=== PATIENT | female | born 1985 | race Caucasian/White ===

== ENCOUNTER 2016-04-28 00:23 | Emergency (ER) | payer SELFPAY ==
--- NOTE | 2016-04-28 06:11 | ER ---
ADMIT: 04/28/2016 RM/LOC: ER [facility] MR#: [id number] [address] AVIVA AZEVEDO [address] [place] [address] Emergency Room Report SEX: F AGE: 30 : 1985 DATE: 04/28/2016 The patient is a 30-year-old female, positive home test on Friday, complains of increasing dysuria, frequency and mild right flank pain. Had one episode of vomiting last week. Exam remarkable for nontoxic, afebrile, comfortable-appearing female with minimal right CVA tenderness. UA; 3+ leukocyte esterase, 54 WBCs, positive hCG. Prescribed Macrobid 100 mg in department and b.i.d. x10 days. Pyridium 200 mg in department and t.i.d. x3 days. Push fluids. Follow up Dr. Sears next week. Reed Gaspar MD/ ciaran JOB #: [id number] CC: Reed Gaspar MD, Attending Physician Placido Anand MD, Family Physician Brian Sears MD
== END 2016-04-28 01:20 | disposition home or self-care (01) ==
LOC: ER 00:23
DX: O23.11 Infections of bladder in pregnancy, first trimester (principal); N30.00 Acute cystitis without hematuria; Z3A.00 Weeks of gestation of pregnancy not specified; Z98.890 Other specified postprocedural states; Z88.8 Allergy status to other drugs, medicaments and biological substances

== ENCOUNTER 2016-06-23 21:17 | Emergency (ER) | payer SELFPAY ==
--- NOTE | 2016-06-24 16:40 | ER ---
ADMIT: 06/23/2016 RM/LOC: ER [facility] MR#: [id number] [address] AVIVA AZEVEDO [address] [place] [address] Emergency Room Report SEX: F AGE: 30 : 1985 DATE: 06/23/2016 ADDENDUM: This patient comes into the ER because she is concerned that she might have genital herpes. She states her sister and her [id number] have genital herpes and are currently having an outbreak. She lives in the same house as they do, and she notices that she has an itchy rash in her pubic area. She is also 14 weeks . On physical exam, she is completely shaved in her pubic area and there is a lot of folliculitis-type appearance throughout her pubic hair, only around the mons, none in the labia consistent with irritation of her hair follicles. DIAGNOSIS: Folliculitis. PLAN: I explained to her what I thought the diagnosis was if she was not having sexual contact with her sister or her [id number], I did not feel like she had genital herpes. We did talk about how genital herpes is passed and why I think this is folliculitis. We will have her follow up with her physician as needed. MARY Monaco / Reed Gaspar MD / ciaran JOB #: [id number] CC: Reed Gaspar MD, Attending Physician Mai Law MD, Family Physician
== END 2016-06-23 22:35 | disposition home or self-care (01) ==
LOC: ER 21:17
DX: O99.89 Other specified diseases and conditions complicating pregnancy, childbirth and the puerperium (principal); L73.9 Follicular disorder, unspecified; Z3A.15 15 weeks gestation of pregnancy; Z98.890 Other specified postprocedural states; Z79.899 Other long term (current) drug therapy

== ENCOUNTER 2016-07-22 17:03 | Emergency (ER) | payer SELFPAY | END 2016-07-22 18:15 | disposition home or self-care (01) | DX: O20.9 Hemorrhage in early pregnancy, unspecified (principal); Z3A.18 18 weeks gestation of pregnancy; O99.342 Other mental disorders complicating pregnancy, second trimester; F32.9 Major depressive disorder, single episode, unspecified; Z90.49 Acquired absence of other specified parts of digestive tract; Z79.899 Other long term (current) drug therapy; Z88.1 Allergy status to other antibiotic agents ==

== ENCOUNTER 2016-08-07 16:45 | Outpatient (CLI) | payer SELFPAY | END 2016-08-07 18:00 | disposition home or self-care (01) | LOC: BC 16:45 → 2LDRP 16:45 → BC 18:00 | DX: O26.852 Spotting complicating pregnancy, second trimester (principal); Z3A.20 20 weeks gestation of pregnancy ==

== ENCOUNTER 2016-08-26 17:05 | Outpatient (CLI) | payer SELFPAY | END 2016-08-26 17:55 | disposition home or self-care (01) | LOC: 2LDRP 17:05 → BC 17:05 | DX: O99.89 Other specified diseases and conditions complicating pregnancy, childbirth and the puerperium (principal); R10.9 Unspecified abdominal pain; Z3A.23 23 weeks gestation of pregnancy ==